=== PATIENT | female | born 1985 | race African-American/Black ===

== ENCOUNTER 2016-07-04 22:22 | Emergency (ER) | payer MEDICAID ==
[~2016-07-04 22:22] MED LIST: SERO200T PO
--- NOTE | 2016-07-04 23:04 | PD ---
HPI Chief Complaint contractions Date Seen: Jul 04, 2016 Time Seen: 23:00 (Manny Flores MD) Travel History International Travel<30 Days: No Contact w/Intl Traveler<30Days: No (Manny Flores MD) History of Present Illness HPI 31 year old at 35/3 weeks presents with report of contractions. They started one week ago. They have been very irregular. They are associated with low back pain. She also reports some slow leaking of clear fluid for the past week. She is presenting to be sure there she is not in labor. No headache, blurry vision, chest pain, shortness of breath, calf tenderness. No nausea or vomiting. She is otherwise doing well, with no vaginal bleeding and positive movements. She is up to date on care per her report. No complications reported for this . (Manny Flores MD) History Past Medical History Narrative Medical Bipolar disorder (Manny Flores MD) Obstetric History Obstetric History with 2 miscarriages 1.) miscarriage early 2.) term , vaginal 3.) miscarriage, early 4.) 37 weeks vaginal 5.) 37 weeks vaginal Current , no complications (Manny Flores MD) Past Surgical History Narrative Surgical None (Manny Flores MD) Family History Narrative Family History None (Manny Flores MD) Social History Alcohol Use: No Tobacco Use: No Substance Abuse: No (Manny Flores MD) Allergies-Medications (Allergen,Severity, Reaction): Coded Allergies: No Known Allergies (Unverified , 04/21/16) Home Meds Reported Medications Quetiapine (Seroquel)200 Mg [id number] Mg PO DAILY #30 TAB Ref 0 04/21/16 Review of Systems General / Constitutional: Weight Gain, No: Fever, Weight Loss Eyes: No: Diploplia, Blurred Vision, Visual changes HENT: No: Headaches, Vertigo, Lightheadedness Cardiovascular: No: Irregular Rhythm, Chest Pain or Discomfort, Palpitations, Tachycardia, Syncope Respiratory: No: Cough, Short of Breath, Wheezing Gastrointestinal: No: Nausea, Vomiting, Diarrhea, Abdominal Pain Genitourinary: No: Urgency, Frequency, Dysuria Musculoskeletal: Cramping, No: Weakness, Edema Skin: No Rash, No Itching, No Dryness Neurologic: No: Weakness, Dizziness, Focal Abnormalities, Coordination Problem , Slurred Speech, Seizures Psychiatric: No: Anxiety, Depression, Disorder of Thought, Mood Disorder, Substance Abuse (Manny Flores MD R2) Physical Exam Narrative GENERAL: Well-nourished, well-developed patient. SKIN: Warm and dry. HEAD: Normocephalic and atraumatic. EYES: No scleral icterus. No injection or drainage. ENT: No nasal drainage noted. Mucous membranes pink. Airway patent. NECK: Supple, trachea midline. No JVD. CARDIOVASCULAR: Regular rate and rhythm without murmurs, gallops, or rubs. RESPIRATORY: Breath sounds equal bilaterally. No accessory muscle use. ABDOMEN/GI: Abdomen soft, non-tender, bowel sounds present, no rebound, no guarding Gravid to 35 weeks size GENITOURINARY: External Genitalia: intact and normal in appearance Dilatation: 0 Effacement: 0 Station: Presentation: [-] Membranes: [intact or ruptured] Uterine Contractions: none FHT's: Category: 1 Baseline: 150's Reactive: yes Variability: moderate Decels: none EXTREMITIES: No cyanosis or edema. BACK: Nontender without obvious deformity. No CVA tenderness. NEUROLOGICAL: Awake and alert. Motor and sensory grossly within normal limits. Five out of 5 muscle strength in all muscle groups. Normal speech. (Manny Flores MD R2) Data Data Vital Signs Reviewed: Yes (Manny Flores MD R2) [facility] Medical Record Reviewed: Yes Interpretation(s) 31 year old at 35/3 weeks gestation presents with report of contractions. - Labor check - monitoring, monitor for contractions - Hydration - Urinalysis - Amnisure for vaginal leaking Narrative Course / MDM 31 year old at 35/3 weeks gestation presents with report of contractions. Likely cramping versus [place]-Zimmerman. - Category one tracing - No contractions on monitor - Cervix closed - Urinalysis: negative for infection - Amnisure negative (Manny Flores MD R2) Attending Attestation Patient seen and evaluated with resident under direct supervision, agree with assessment and plan. (Zak Bolanos MD) Diagnosis Diagnosis: Primary Impression: Uterine cramping Disposition: 01 DISCHARGE HOME Condition: Good Manny Flores MD R2 Jul 04, 2016 23:04 Zak Bolanos MD Jul 05, 2016 09:01
[2016-07-04 23:27] LABS: BLOOD, URINE NEG (NEG); COMMENT (UR) CULT NOT INDICATED; CULTURE IF INDICATED CULT NOT INDICATED; GLUCOSE,URINE NEG (NEG); KETONE, URINE NEG (NEG); NITRITE,URINE NEG (NEG); PH, URINE 6.5 (5.0-8.5); SQUAMOUS EPITHELIAL CELL URINE 1 /hpf (0-5); URINE COLOR YELLOW (YELLW/STRAW)
== END 2016-07-04 23:30 | disposition home or self-care (01) ==
LOC: HOBED 22:22
DX: O47.03 False labor before 37 completed weeks of gestation, third trimester (principal); Z3A.35 35 weeks gestation of pregnancy
CPT/HCPCS: 59025; 81001; 84112

== ENCOUNTER 2016-08-12 07:45 | Emergency (ER) | payer MEDICAID ==
[~2016-08-12] VITALS: Ht 165.1 cm; Wt 130.0 kg
[2016-08-12 07:47] VITALS: BP 134/96; PULSE 114; RESP 18; TEMP 98.7; O2SAT 98
[2016-08-12 08:17] VITALS: BP 127/80; PULSE 111; RESP 20; O2SAT 99
[2016-08-12] MEDS ORDERED: IBUPROFEN 600 MG TAB PO ONE (09:00)
--- NOTE | 2016-08-12 09:18 | PD ---
HPI Chief Complaint: Wound/Suture/Staple Re-Check Time Seen by Provider: 08:36 Travel History International Travel<30 days: No Contact w/Intl Traveler<30days: No Traveled to known affect area: No History of Present Illness HPI 31 y/o female presents with intermittently leaking blood and intermittent cramping near her site. She states she had surgery and land on the 16. She states she lives here and was out there visiting someone when she went into labor and had to have surgery unexpectedly. She states that she's also been having burning when she urinates and general ill feeling but denies other concurrent complaints. She states this is her first time she's had to have a as with her other kids it was a natural delivery. She states that she is not breast-feeding or pumping. PFSH Past Medical History Arthritis: No Autoimmune Disease: No Blood Disorders: No Bipolar Disorder: Yes Anxiety: Yes Depression: Yes Cancer: No Cardiovascular Problems: No Diabetes: No Diminished Hearing: No Endocrine: No Gastrointestinal Disorders: No Genitourinary: No Immune Disorder: No Implanted Vascular Access Dvce: No Musculoskeletal: No Neurologic: No Psychiatric: Yes (DX. BIPOLAR D/O) Reproductive: No Respiratory: No Immunizations Current: Yes Tetanus Vaccination: < 5 Years Influenza Vaccination: Yes ?: Not : 6 Para: 4 Miscarriage: 2 Dilation and Curettage (D&C): Yes Past Surgical History Surgical History: No Previous Surgery Section: Yes Gynecologic Surgery: Yes (D&C) Other Surgery: Yes Social History Alcohol Use: No Tobacco Use: No Substance Use: No Allergies-Medications (Allergen,Severity, Reaction): Coded Allergies: No Known Allergies (Unverified , 04/21/16) Reported Meds & Prescriptions Reported Meds & Active Scripts Active Macrobid (Nitrofurantoin Monoh/Nitrofur Macro) 100 Mg Cap 100 Mg PO BID 7 Days Reported Seroquel (Quetiapine Fumarate) 200 Mg Tab 200 Mg PO DAILY Review of Systems Except as stated in HPI: all other systems reviewed are Neg Physical Exam Narrative GENERAL: Well-nourished, well-developed patient. SKIN: To lateral edge of the incision there is small area where I can see deep suture but there is no active bleeding or drainage from this area. No underlying induration or crepitus, no surrounding erythema or warmth HEAD: Normocephalic and atraumatic. EYES: No injection or drainage. ENT: No nasal drainage noted. NECK: Supple, trachea midline. CARDIOVASCULAR: Regular rate and rhythm RESPIRATORY: no increased effort. No accessory muscle use. GASTROINTESTINAL: Abdomen soft, mild tenderness to suprapubic area, nondistended. BACK: Nontender without obvious deformity. NEUROLOGICAL: Awake and alert. Motor and sensory grossly within normal limits. Normal speech. Data Data Last Documented VS Vital Signs Date Time Temp Pulse Resp B/P Pulse Ox O2 Delivery O2 Flow Rate FiO2 08/12/16 10:03 105 20 125/75 99 Room Air 08/12/16 07:47 98.7 Orders Urinalysis - C+S If Indicated (08/12/16 08:29) Ibuprofen (Motrin) (08/12/16 09:00) Urine Culture (08/12/16 08:15) Labs Laboratory Tests Test 08/12/16 08:15 Urine Color YELLOW Urine Turbidity HAZY Urine pH 6.5 Urine Specific [place] 1.009 Urine Protein NEG mg/dL Urine Glucose (UA) NEG mg/dL Urine Ketones NEG mg/dL Urine Occult Blood MOD Urine Nitrite NEG Urine Bilirubin NEG Urine Urobilinogen LESS THAN 2.0 MG/DL Urine Leukocyte Esterase SMALL Urine RBC 1 /hpf Urine WBC 9 /hpf Urine Squamous Epithelial 10 /hpf Cells Urine Transitional Epithelial <1 /hpf Cells Urine Bacteria RARE /hpf Microscopic Urinalysis Comment CULTURE INDICATED MDM Medical Decision Making Medical Screen Exam Complete: Yes Emergency Medical Condition: Yes Medical Record Reviewed: Yes (past history confirmed) Interpretation(s) ua with uti Differential Diagnosis UTI, postop pain, surgical infection Narrative Course Will check urinalysis and dose with Motrin and reevaluate Patient denies any new complaints and states that they are feeling better. Patient happy with care, all questions answered. Patient knows that follow up is incumbent on them and to return to the emergency room immediately if new or worsening symptoms develop. Patient given strict return precautions, vitals reviewed and are normal, agrees to further workup as an outpatient. Physician Communication Physician Communication dr candelario who is the covering OB hospitalist states to place dressing and she should follow with her surgeon. If gets worse she should return ideally where her surgeon is located Diagnosis Primary Impression: Visit for wound check Additional Impression: UTI (urinary tract infection) Qualified Code: N39.0 - Urinary tract infection without hematuria, site unspecified Patient Instructions: General Instructions Additional Instructions: follow with your surgeon tommorrow, return as needed, alternate motrin with your pain medication at home Med/Other Pt SpecificInfo: Prescription(s) given Scripts Nitrofurantoin Monohydrate Macrocrystals (Macrobid)100 Mg [id number] Mg PO BID 7 Days Prov:Xena Parish MD 08/12/16 Disposition: 01 DISCHARGE HOME Condition: Stable Xena Parish MD Aug 12, 2016 09:18 Xena Parish MD Aug 12, 2016 09:18
[2016-08-12 09:37] LABS: BACTERIA, URINE RARE /hpf; BLOOD, URINE MOD (NEG); GLUCOSE,URINE NEG (NEG); KETONE, URINE NEG (NEG); NITRITE,URINE NEG (NEG); PH, URINE 6.5 (5.0-8.5); SQUAMOUS EPITHELIAL CELL URINE 10 /hpf (0-5); TRANSITIONAL EPI CELLS, URINE <1 /hpf; URINE COLOR YELLOW (YELLW/STRAW)
[2016-08-12 09:46] LABS: COMMENT (UR) CULTURE INDICATED; CULTURE IF INDICATED CULTURE INDICATED
[2016-08-12] MEDS ORDERED: MACR100C2 PO (09:58)
[2016-08-12 10:03] VITALS: BP 125/75; PULSE 105; RESP 20; O2SAT 99
== END 2016-08-12 10:42 | disposition home or self-care (01) ==
LOC: NEPC 07:45
DX: O90.0 Disruption of cesarean delivery wound (principal); N39.0 Urinary tract infection, site not specified
CPT/HCPCS: 81001; 87086; 99283

== ENCOUNTER 2016-09-09 15:36 | Emergency (ER) | payer MEDICAID ==
[~2016-09-09] VITALS: Ht 165.1 cm; Wt 131.5 kg
[~2016-09-09 15:36] MED LIST changes: +MACR100C2 PO
[2016-09-09 15:37] VITALS: BP 144/91; PULSE 102; RESP 20; TEMP 98.5; O2SAT 100
[2016-09-09 16:30] VITALS: BP 137/82; PULSE 91; RESP 16; O2SAT 96
--- NOTE | 2016-09-09 18:54 | PD ---
HPI Chief Complaint: Wound/Suture/Staple Re-Check Time Seen by Provider: 18:50 Travel History International Travel<30 days: No Contact w/Intl Traveler<30days: No Traveled to known affect area: No History of Present Illness HPI 31-year-old female presents to the emergency department for evaluation of possible infection to her . Patient states she has on August 06, 2016. She followed up with her surgeon 1 week after, but states she does not have the time to drive to [place] and see him for further follow- up. Patient states that she is noticing a foul odor and drainage from the C- section wound with increasing pain. She denies any fevers or chills. She is not currently breast-feeding. This was her fourth , but the other 3 pregnancies were delivered vaginally. Patient denies any medical problems or taking prescribed medications. PFSH Past Medical History Arthritis: No Autoimmune Disease: No Blood Disorders: No Bipolar Disorder: Yes Anxiety: Yes Depression: Yes Cancer: No Cardiovascular Problems: No Diabetes: No Diminished Hearing: No Endocrine: No Gastrointestinal Disorders: No Genitourinary: No Immune Disorder: No Implanted Vascular Access Dvce: No Musculoskeletal: No Neurologic: No Psychiatric: Yes (DX. BIPOLAR D/O) Reproductive: No Respiratory: No Immunizations Current: Yes ?: Not : 6 Para: 4 Miscarriage: 2 Dilation and Curettage (D&C): Yes Past Surgical History Section: Yes Gynecologic Surgery: Yes (D&C) Other Surgery: Yes Social History Alcohol Use: No Tobacco Use: No Substance Use: No Allergies-Medications (Allergen,Severity, Reaction): Coded Allergies: No Known Allergies (Unverified , 04/21/16) Reported Meds & Prescriptions Reported Meds & Active Scripts Active Bactroban Topical (Mupirocin) 2% Oint 1 Appl TOPICAL BID 10 Days Bactrim DS (Sulfamethoxazole-Trimethoprim) 800-160 Mg Tab 1 Tab PO BID 10 Days Reported Seroquel (Quetiapine Fumarate) 25 Mg Tab 25 Mg PO DAILY Seroquel (Quetiapine Fumarate) 50 Mg Tab 50 Mg PO HS Review of Systems Except as stated in HPI: all other systems reviewed are Neg Physical Exam Narrative GENERAL: Well-developed well-nourished female patient, ambulatory. Afebrile. SKIN: Warm and dry. Patient has a small area of dehiscence to the right side of the scar with purulent drainage noted. There is some mild induration to this area as well. She has tenderness to palpation. Follow odor noted. HEAD: Normocephalic. Atraumatic. EYES: No scleral icterus. No injection or drainage. NECK: Supple, trachea midline. No JVD or lymphadenopathy. CARDIOVASCULAR: Regular rate and rhythm without murmurs, gallops, or rubs. RESPIRATORY: Breath sounds equal bilaterally. No accessory muscle use. Lungs sounds are clear to auscultation. GASTROINTESTINAL: Abdomen soft, non-tender, nondistended. MUSCULOSKELETAL: No cyanosis, or edema. BACK: Nontender without obvious deformity. No CVA tenderness. Data Data Last Documented VS Vital Signs Date Time Temp Pulse Resp B/P Pulse Ox O2 Delivery O2 Flow Rate FiO2 09/09/16 21:00 95 18 128/66 99 Room Air 09/09/16 15:37 98.5 Orders Complete Blood Count With Diff (09/09/16 18:48) Comprehensive Metabolic Panel (09/09/16 18:48) Wound Culture And Gram Stain (09/09/16 18:48) Sulfamet-Trimeth Ds 800-160 Mg (Bactrim (09/09/16 21:30) Labs Laboratory Tests Test 09/09/16 19:00 White Blood Count 10.0 TH/MM3 Red Blood Count 4.10 MIL/MM3 Hemoglobin 11.4 GM/DL Hematocrit 34.1 % Mean Corpuscular Volume 83.1 FL Mean Corpuscular Hemoglobin 27.7 PG Mean Corpuscular Hemoglobin 33.3 % Concent Red Cell Distribution Width 15.5 % Platelet Count 274 TH/MM3 Mean Platelet Volume 7.6 FL Neutrophils (%) (Auto) 55.8 % Lymphocytes (%) (Auto) 31.1 % Monocytes (%) (Auto) 8.0 % Eosinophils (%) (Auto) 4.2 % Basophils (%) (Auto) 0.9 % Neutrophils # (Auto) 5.6 TH/MM3 Lymphocytes # (Auto) 3.1 TH/MM3 Monocytes # (Auto) 0.8 TH/MM3 Eosinophils # (Auto) 0.4 TH/MM3 Basophils # (Auto) 0.1 TH/MM3 CBC Comment AUTO DIFF Differential Comment AUTO DIFF CONFIRMED Platelet Estimate NORMAL Platelet Morphology Comment NORMAL Sodium Level 140 MEQ/L Potassium Level 3.6 MEQ/L Chloride Level 106 MEQ/L Carbon Dioxide Level 27.7 MEQ/L Anion Gap 6 MEQ/L Blood Urea Nitrogen 6 MG/DL Creatinine 0.87 MG/DL Estimat Glomerular Filtration 93 ML/MIN Rate Random Glucose 84 MG/DL Calcium Level 8.9 MG/DL Total Bilirubin 0.4 MG/DL Aspartate Amino Transf 17 U/L (AST/SGOT) Alanine Aminotransferase 16 U/L (ALT/SGPT) Alkaline Phosphatase 120 U/L Total Protein 7.6 GM/DL Albumin 3.6 GM/DL MDM Medical Decision Making Medical Screen Exam Complete: Yes Emergency Medical Condition: Yes Medical Record Reviewed: Yes Differential Diagnosis Cellulitis versus abscess versus surgical complication Narrative Course 31-year-old female presents to the emergency department for odor and drainage from her that was performed on August 06, 2016. CBC, CMP are ordered and pending. Wound culture is taken. Workup is initiated in triage. Once a medical bed becomes available, patient will be transferred and care assumed by that provider. Scripts Mupirocin Topical (Bactroban Topical)2% Oint1 Appl TOPICAL BID 10 Days Prov:Mariah Segura MD 09/09/16 Sulfamethoxazole-Trimethoprim (Bactrim DS)800-160 Mg Tab1 Tab PO BID 10 Days Prov:Mariah Segura MD 09/09/16 Beryl Obando Sep 09, 2016 18:54
[2016-09-09 19:25] LABS: AUTOMATED NEUTROPHIL # 5.6 TH/MM3 (1.8-7.7); BASOPHIL # 0.1 TH/MM3 (0-0.2); BASOPHIL % 0.9 % (0.0-2.0); EOSINOPHIL # 0.4 TH/MM3 (0-0.4); EOSINOPHIL % 4.2 % (0.0-4.0); HEMATOCRIT 34.1 % (35.0-46.0); LYMPH % 31.1 % (9.0-44.0); LYMPHOCYTE # 3.1 TH/MM3 (1.0-4.8); MEAN CELL VOLUME 83.1 FL (80.0-100.0); MEAN CORPUSCULAR HEMOGLOBIN 27.7 PG (27.0-34.0); MEAN CORPUSCULAR HGB CONC 33.3 % (32.0-36.0); NEUT % 55.8 % (16.0-70.0); PLATELET COUNT 274 TH/MM3 (150-450); RED CELL DISTRIBUTION WIDTH 15.5 % (11.6-17.2)
[2016-09-09 19:28] LABS: HEMO FLAGS AUTO DIFF
[2016-09-09 19:37] LABS: ALT (GPT) 16 U/L (10-53); ANION GAP 6 MEQ/L (5-15); AST (GOT) 17 U/L (15-37); BICARBONATE 27.7 MEQ/L (21.0-32.0); BLOOD UREA NITROGEN 6 MG/DL (7-18); CHLORIDE 106 MEQ/L (98-107); GLOMERULAR FILTRATION RATE 93 ML/MIN (>89); POTASSIUM 3.6 MEQ/L (3.5-5.1); SODIUM (NA) 140 MEQ/L (136-145)
[2016-09-09 19:40] LABS: ALKALINE PHOSPHATASE 120 U/L (45-117); TOTAL BILIRUBIN ADULT 0.4 MG/DL (0.2-1.0)
[2016-09-09 21:00] VITALS: BP 128/66; PULSE 95; RESP 18; O2SAT 99
[2016-09-09 21:00] LABS: PLATELET ESTIMATE SMEAR NORMAL (NORMAL); PLATELET MORPHOLOGY NORMAL (NORMAL); SCAN/DIFF AUTO DIFF CONFIRMED
[2016-09-09] MEDS ORDERED: SERO25TA PO (21:03)
[2016-09-09] MEDS ORDERED: SERO50TA PO (21:03)
[2016-09-09] MEDS ORDERED: BACT800T5 PO (21:17)
[2016-09-09] MEDS ORDERED: BACT2OIN TOPICAL (21:17)
--- NOTE | 2016-09-09 21:23 | PD ---
Physical Exam Date Seen by Provider: Sep 09, 2016 Time Seen by Provider: 21:17 Narrative 31-year-old female that presents to the ED for evaluation of possible wound infection. Please refer to Beryl FONSECA's note. Patient was initially seen by her and she was signed out to me pending labs and disposition. On my Physical examination patient has a very superficial well-healing surgical site with some mild erythema on the borders and some greenish discharge from an opening that appears to be healing. I do not feel any palpable mass. Patient has no lymphadenopathy. No other symptoms or deformities noted. Data Data Last Documented VS Vital Signs Date Time Temp Pulse Resp B/P Pulse Ox O2 Delivery O2 Flow Rate FiO2 09/09/16 21:00 95 18 128/66 99 Room Air 09/09/16 15:37 98.5 Orders Complete Blood Count With Diff (09/09/16 18:48) Comprehensive Metabolic Panel (09/09/16 18:48) Wound Culture And Gram Stain (09/09/16 18:48) Sulfamet-Trimeth Ds 800-160 Mg (Bactrim (09/09/16 21:30) Labs Laboratory Tests Test 09/09/16 19:00 White Blood Count 10.0 TH/MM3 Red Blood Count 4.10 MIL/MM3 Hemoglobin 11.4 GM/DL Hematocrit 34.1 % Mean Corpuscular Volume 83.1 FL Mean Corpuscular Hemoglobin 27.7 PG Mean Corpuscular Hemoglobin 33.3 % Concent Red Cell Distribution Width 15.5 % Platelet Count 274 TH/MM3 Mean Platelet Volume 7.6 FL Neutrophils (%) (Auto) 55.8 % Lymphocytes (%) (Auto) 31.1 % Monocytes (%) (Auto) 8.0 % Eosinophils (%) (Auto) 4.2 % Basophils (%) (Auto) 0.9 % Neutrophils # (Auto) 5.6 TH/MM3 Lymphocytes # (Auto) 3.1 TH/MM3 Monocytes # (Auto) 0.8 TH/MM3 Eosinophils # (Auto) 0.4 TH/MM3 Basophils # (Auto) 0.1 TH/MM3 CBC Comment AUTO DIFF Differential Comment AUTO DIFF CONFIRMED Platelet Estimate NORMAL Platelet Morphology Comment NORMAL Sodium Level 140 MEQ/L Potassium Level 3.6 MEQ/L Chloride Level 106 MEQ/L Carbon Dioxide Level 27.7 MEQ/L Anion Gap 6 MEQ/L Blood Urea Nitrogen 6 MG/DL Creatinine 0.87 MG/DL Estimat Glomerular Filtration 93 ML/MIN Rate Random Glucose 84 MG/DL Calcium Level 8.9 MG/DL Total Bilirubin 0.4 MG/DL Aspartate Amino Transf 17 U/L (AST/SGOT) Alanine Aminotransferase 16 U/L (ALT/SGPT) Alkaline Phosphatase 120 U/L Total Protein 7.6 GM/DL Albumin 3.6 GM/DL [facility] Medical Record Reviewed: Yes Supervised Visit with JEANNINE: No Interpretation(s) CBC & BMP Diagram 09/09/16 19:00 Differential Diagnosis wound infection versus surgical site infection versus cellulitis versus abscess Narrative Course 31-year-old female that presents to the ED for evaluation of possible wound infection. Patient was properly examined and was found to have signs and symptoms consistent with appears to be well infection. Patient was initially seen by Beryl FONSECA. Please refer to her note. I was asked to disposition the patient pending labs. Labs were essentially unremarkable. On my physical examination this appears to be a very superficial infection. I do not believe the patient has any deep infection at this time. Patient is walking and moving with no signs of acute disease. No sign of sepsis. Patient does inform me that she's been cleaning the wound with hydrogen peroxide. I believe that this is likely causing some of the symptoms. I recommend that she stop doing this. At this time I will give patient a prescription for Bactrim and bacitracin. Patient had wound changes done here. Patient was told the wound culture should come back in the next 2 days and will be able to figure out what bacteria is growing in it if any. I did strongly encourage the patient that she needs to follow up with whoever did the surgery that she needs to be aware that she has this infection. She agrees and understands. She was also made aware that if anything worsens including having fever, worsening discharge, worsening erythema or symptoms she needs to come back. She agrees and understands. Follow with PCP. See ED worsening symptoms. This was discussed with the patient who agrees with plan. Diagnosis Primary Impression: Wound infection Patient Instructions: General Instructions Additional Instruction: Take medication as prescribed. She has dressings daily. Follow-up with your [employer] ACC[employer] MANAGER who performed the surgery as he needs to be aware of that you have a small infection in this area. See ED if any signs of fever, chills, worsening infection on the area with worsening drainage or worsening pain. Med/Other Pt SpecificInfo: Prescription(s) given Scripts Mupirocin Topical (Bactroban Topical)2% Oint1 Appl TOPICAL BID 10 Days Prov:Mariah Segura MD 09/09/16 Sulfamethoxazole-Trimethoprim (Bactrim DS)800-160 Mg Tab1 Tab PO BID 10 Days Prov:Mariah Segura MD 09/09/16 Disposition: 01 DISCHARGE HOME Condition: Stable Mauricio Montalvo Sep 09, 2016 21:23
[2016-09-09] MEDS ORDERED: SULFAMETHOXAZOLE-TRIMETHOPRIM DS 800-160 MG TAB PO ONE (21:30)
== END 2016-09-09 21:53 | disposition home or self-care (01) ==
LOC: NEPE 15:36
DX: T81.4XXA Infection following a procedure, initial encounter (principal)
CPT/HCPCS: 80053; 85025; 86403; 87070; 87205; 99283

== ENCOUNTER 2017-09-17 11:26 | Emergency (ER) | payer MEDICAID, OTHER ==
[~2017-09-17] VITALS: Ht 165.1 cm; Wt 115.0 kg
[~2017-09-17 11:26] MED LIST changes: +BACT2OIN TOPICAL; +BACT800T5 PO; -MACR100C2 PO; -SERO200T PO; +SERO25TA PO; +SERO50TA PO
[2017-09-17 11:28] VITALS: BP 128/84; PULSE 79; RESP 15; TEMP 97.4; O2SAT 100
--- NOTE | 2017-09-17 14:14 | PD ---
HPI . 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 She is also complaining with amenorrhea. Last menstrual period was in June but was abnormal in that she only bled lightly and for a couple of days. Her last normal menstrual period was in May. She is also complaining with some pelvic discomfort. No modifying factors. Symptoms are mild. PFSH Past Medical History Arthritis: No Autoimmune Disease: No Blood Disorders: No Bipolar Disorder: Yes Anxiety: Yes Depression: Yes Cancer: No Cardiovascular Problems: No Diabetes: No Diminished Hearing: No Endocrine: No Gastrointestinal Disorders: No Genitourinary: No Immune Disorder: No Implanted Vascular Access Dvce: No Musculoskeletal: No Neurologic: No Psychiatric: Yes (DX. BIPOLAR D/O) Reproductive: No Respiratory: No Immunizations Current: Yes ?: Unknown LMP: 06/2017 : 6 Para: 4 Miscarriage: 2 Dilation and Curettage (D&C): Yes Past Surgical History Section: Yes Gynecologic Surgery: Yes (D&C) Other Surgery: Yes Social History Alcohol Use: No Tobacco Use: No Substance Use: No Allergies-Medications (Allergen,Severity, Reaction): Coded Allergies: No Known Allergies (Unverified Adverse Reaction, Unknown, 09/17/17) Reported Meds & Prescriptions Reported Meds & Active Scripts Active Bactroban Topical (Mupirocin) 2% Oint 1 Appl TOPICAL BID 10 Days Bactrim DS (Sulfamethoxazole-Trimethoprim) 800-160 Mg Tab 1 Tab PO BID 10 Days Reported Seroquel (Quetiapine Fumarate) 25 Mg Tab 25 Mg PO DAILY Seroquel (Quetiapine Fumarate) 50 Mg Tab 50 Mg PO HS Review of Systems Except as stated in HPI: all other systems reviewed are Neg Physical Exam Narrative GENERAL: Awake and alert and in no acute distress. SKIN: Warm and dry. HEAD: Normocephalic/atraumatic. EYES: Pupils are equal. Extraocular movements are intact. NECK: Normal range of motion. CARDIOVASCULAR: Regular rate and rhythm. RESPIRATORY: Nonlabored respirations. ABDOMEN: Soft and nontender. : Normal female. Physiologic appearing discharge in the vaginal vault. No cervical motion tenderness. She does complain with adnexal tenderness on bimanual exam. MUSCULOSKELETAL: Atraumatic. NEUROLOGICAL: Nonfocal. PSYCHIATRIC: Appropriate mood and affect. Data Data Last Documented VS Vital Signs Date Time Temp Pulse Resp B/P (MAP) Pulse Ox O2 Delivery O2 Flow Rate FiO2 09/17/17 11:28 97.4 79 15 128/84 (99) 100 Orders Orders Gc And Chlamydia Pcr (09/17/17 12:10) Wet Prep Profile (09/17/17 12:10) Ed Urine Pregnancytest Poc (09/17/17 12:10) Beta Hcg (Quant/Titer) (09/17/17 12:26) Us Pelvis (Ques Preg/Ectopic) (09/17/17 12:26) Labs Laboratory Tests Test 09/17/17 12:25 Clue Cells (Wet Prep) NONE SEEN Vaginal Trichomonas (Wet Prep) NONE SEEN Vaginal Yeast (Wet Prep) PRESENT MDM Medical Decision Making Medical Screen Exam Complete: Yes Emergency Medical Condition: Yes Differential Diagnosis Differential diagnosis of pelvic pain includes but is not limited to UTI, PID, ectopic , spontaneous AB, constipation, viral illness Narrative Course This patient presents complaining of pelvic pain and vaginal discharge. She has missed a few periods. Urine test is positive. I ordered a quantitative hCG and pelvic ultrasound. However, the patient has left prior to the completion of her workup. Diagnosis Primary Impression: Pelvic pain affecting Qualified Codes: O26.891 - Other specified related conditions, first trimester; R10.2 - Pelvic and perineal pain Disposition: 07 AGAINST MEDICAL ADVICE Condition: Stable Megha Omalley MD Sep 17, 2017 14:14
--- NOTE | 2017-09-17 15:52 | RADRPT ---
EXAM DATE/TIME: 09/17/2017 14:44 [place] COMPARISON: No previous studies available for comparison. INDICATIONS : Pelvic pain. LAB(S): [facility] MEDICAL HISTORY : Depression. Bipolar disorder. Anxiety. SURGICAL HISTORY : section. Dilation and currettage. ENCOUNTER: Subsequent ACUITY: 1 week PAIN SCORE: 4/10 LOCATION: Bilateral pelvis MEASUREMENTS: UTERUS: 14.9 x 8.6 x 9.2 cm ENDOMETRIAL STRIPE: >20 mm RIGHT OVARY: Non visualized LEFT OVARY: 5.1 x 3.8 x 3.9 cm FREE FLUID: No CROWN RUMP LENGTH: 5.9 = 12 WKS 4 DAYS FHR: 142 BPM FINDINGS: UTERUS: There is a gestational sac within the endometrial cavity. There is a pole that measures 12 week s and 4 days of gestational age. There is a heartbeat measured at 142 beats per minute. RIGHT OVARY: Not visualized LEFT OVARY: There is a left ovarian cyst measuring 3.9 x 4.0 cm. MISCELLANEOUS: No free fluid. CONCLUSION: 1. Viable IUP of approximately 12 weeks and 4 days of age. 2. Left ovarian cyst measuring 4 cm. Francesco Yun MD on September 17, 2017 at 15:48 Board Certified Radiologist. This report was verified electronically.
[2017-09-17] MEDS ORDERED: FLUCONAZOLE 100 MG TAB PO ONE (16:00)
== END 2017-09-17 16:27 | disposition home or self-care (01) ==
LOC: NEPD 11:26
DX: O26.891 Other specified pregnancy related conditions, first trimester (principal); R10.2 Pelvic and perineal pain; N89.8 Other specified noninflammatory disorders of vagina; O34.81 Maternal care for other abnormalities of pelvic organs, first trimester; N83.202 Unspecified ovarian cyst, left side; O99.341 Other mental disorders complicating pregnancy, first trimester; F31.9 Bipolar disorder, unspecified; F41.9 Anxiety disorder, unspecified; Z3A.12 12 weeks gestation of pregnancy
CPT/HCPCS: 76700; 84702; 84703; 87210; 87491; 87591

== ENCOUNTER 2017-10-24 15:41 | Emergency (ER) | payer OTHER ==
[~2017-10-24] VITALS: Ht 177.8 cm; Wt 118.0 kg
[2017-10-24 15:58] VITALS: BP 151/80; PULSE 88; RESP 18; TEMP 98; O2SAT 98
[2017-10-24] MEDS ORDERED: TETANUS/DIPHTHERIA TOXOID ADULT 0.5 ML VIAL IM ONE (16:15)
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
== END 2017-10-24 16:45 | disposition home or self-care (01) ==
LOC: NEPD 15:41
DX: O9A.212 Injury, poisoning and certain other consequences of external causes complicating pregnancy, second trimester (principal); S41.111A Laceration without foreign body of right upper arm, initial encounter; S20.229A Contusion of unspecified back wall of thorax, initial encounter; Y08.89XA Assault by other specified means, initial encounter; O99.342 Other mental disorders complicating pregnancy, second trimester; F31.9 Bipolar disorder, unspecified; F41.9 Anxiety disorder, unspecified; Z3A.16 16 weeks gestation of pregnancy; Z23 Encounter for immunization
CPT/HCPCS: 12001; 90471; 90714

== ENCOUNTER 2018-03-15 10:45 | Inpatient (IN) ==
--- NOTE | 2018-03-15 11:48 | ED ---
History of Present Illness Primary Care Physician: No Primary Care Physician Chief Complaint: contractions History of Present Illness: 33 yo at 37 weeks and 5 days who presents to triage due to irregular contractions that started today. She is a patient of Heidi Sarmiento. Patient is scheduled for a c/s on March 24 at [place]. She is working with an adoptive family who suggested that she come to the ED. Patient denies leakage of fluid or vaginal bleeding. She reports that she has not felt baby move as often for the past 2 days. Weeks Gestation:: 37 Para: 4 : 7 Review of Systems All other systems reviewed negative except as stated in HPI PMFSH - History History Provided By: Patient - Medical / Surgical Hx Neg / Unobtainable Medical Problems Denied: Yes - Alcohol History How Often Do You Have a Drink Containing Alcohol: Never - Substance Use History Substance History: No History of Abuse - Travel History History of Recent Travel: No Recent Travel in the [facility] Within the Last 8 Weeks: No Recent Travel Out of the Country Within the Last 8 Weeks: No Medications and Allergies Allergies Allergy/AdvReac Type Severity Reaction Status Date / Time No Known Allergies Allergy Verified 03/15/18 11:20 Home Medications Medication Instructions Recorded Confirmed Type No Known Home Medications 03/15/18 03/15/18 History Exam Vital signs: Vital Signs 03/15/18 11:15 Temperature 98.1 F Pulse Rate 90 Respiratory Rate 18 Blood Pressure 143/75 H Intake & Output 03/14/18 03/15/18 03/15/18 18:59 06:59 18:59 Weight 118 kg Narrative: GENERAL: Well-nourished, well-developed patient. SKIN: Warm and dry. HEAD: Normocephalic and atraumatic. EYES: No scleral icterus. No injection or drainage. ENT: No nasal drainage noted. Mucous membranes pink. Airway patent. NECK: Supple, trachea midline. No JVD. CARDIOVASCULAR: Regular rate and rhythm without murmurs, gallops, or rubs. RESPIRATORY: Breath sounds equal bilaterally. No accessory muscle use. ABDOMEN/GI: Abdomen soft, non-tender, bowel sounds present, no rebound, no guarding Gravid to 37 weeks size GENITOURINARY: External Genitalia: intact and normal in appearance Cervix: high, posterior Dilatation: 0 Effacement: 30 Station: -4 Membranes: intact Uterine Contractions: none FHT's: Category: I Baseline: 130 Reactive: no Variability: moderate Decels: none EXTREMITIES: No cyanosis or edema. BACK: Nontender without obvious deformity. No CVA tenderness. NEUROLOGICAL: Awake and alert. Motor and sensory grossly within normal limits. Five out of 5 muscle strength in all muscle groups. Normal speech. Assessment and Plan - Diagnosis (1) contractions Code(s): O47.9 - False labor, unspecified Status: Acute (2) 37 weeks gestation of Code(s): Z3A.37 - 37 weeks gestation of Status: Acute (3) Drug abuse during Code(s): O99.320 - Drug use complicating , unspecified trimester; F19.10 - Other psychoactive substance abuse, uncomplicated Status: Acute - Plan 33 yo at 37 weeks and 5 days who presents to triage due to irregular contractions. FHT 130s Cat 1 with minimal variability and nonreactive. Patient UDS is positive for cocaine. -IV hydration with LR 1000ml -BPP 8/8, however baby is measuring 5lbs 5oz -Monitor FHR -Category 2 tracing with minimal variability X 5 hours -Decision made to proceed to C section. Patient consented and aware. Discharge Plan - Physicians Team ED Provider: Mable Garsia Primary Care Provider: Primary Care Lety Long - Rxs /Orders / Referrals /Forms Prescriptions: No Action No Known Home Medications - Discharge Instructions Print Language: Greenlandic
[2018-03-15 12:31] LABS: Amphetamine Screen,Urine Neg (Neg); Barbiturate Screen,Urine Neg (Neg); Cannabinoid Screen,Urine Neg (Neg); Cocaine Screen,Urine Pos (Neg)
[2018-03-15 12:41] LABS: Opiate Screen,Urine Neg (Neg)
[2018-03-15 13:18] LABS: Bilirubin,Urine Negative (Negative); Clarity,Urine Clear (Clear); Color,Urine Yellow (Yellw/Straw); Glucose,Urine (UA) Negative (Negative); Leukocyte Esterase,Urine Negative (Negative); Mucus,Urine Few /lpf (Occasional); Nitrite,Urine Negative (Negative); Specific Gravity,Urine 1.009 (1.002-1.035); Squamous Epithelial Cell,Urine 2 /hpf (0-5); Urobilinogen,Urine 4 or Greater mg/dL (Less than 2)
--- NOTE | 2018-03-15 15:18 | P.OBGPN ---
33 yo at 37 weeks and 5 days who presents to triage due to irregular contractions that started today. She is a patient of Heidi Sarmiento. Patient is scheduled for a c/s on March 24 at [place]. She is working with an adoptive family who suggested that she come to the ED. Patient denies leakage of fluid or vaginal bleeding. She reports that she has not felt baby move as often for the past 2 days. Weeks Gestation:: 37 Para: 4 : 7 Review of Systems All other systems reviewed negative except as stated in HPI PMFSH - History History Provided By: Patient - Medical / Surgical Hx Neg / Unobtainable Medical Problems Denied: Yes - Alcohol History How Often Do You Have a Drink Containing Alcohol: Never - Substance Use History Substance History: No History of Abuse - Travel History History of Recent Travel: No Recent Travel in the [facility] Within the Last 8 Weeks: No Recent Travel Out of the Country Within the Last 8 Weeks: No Medications and Allergies Allergies Allergy/AdvReac Type Severity Reaction Status Date / Time No Known Allergies Allergy Verified 03/15/18 11:20 Home Medications Medication Instructions Recorded Confirmed Type No Known Home Medications 03/15/18 03/15/18 History Exam Vital signs: Vital Signs 03/15/18 11:15 Temperature 98.1 F Pulse Rate 90 Respiratory Rate 18 Blood Pressure 143/75 H Intake & Output 03/14/18 03/15/18 03/15/18 18:59 06:59 18:59 Weight 118 kg Narrative: GENERAL: Well-nourished, well-developed patient. SKIN: Warm and dry. HEAD: Normocephalic and atraumatic. EYES: No scleral icterus. No injection or drainage. ENT: No nasal drainage noted. Mucous membranes pink. Airway patent. NECK: Supple, trachea midline. No JVD. CARDIOVASCULAR: Regular rate and rhythm without murmurs, gallops, or rubs. RESPIRATORY: Breath sounds equal bilaterally. No accessory muscle use. ABDOMEN/GI: Abdomen soft, non-tender, bowel sounds present, no rebound, no guarding Gravid to 37 weeks size GENITOURINARY: External Genitalia: intact and normal in appearance Cervix: high, posterior Dilatation: 0 Effacement: 30 Station: -4 Membranes: intact Uterine Contractions: none FHT's: Category: I Baseline: 130 Reactive: no Variability: moderate Decels: none EXTREMITIES: No cyanosis or edema. BACK: Nontender without obvious deformity. No CVA tenderness. NEUROLOGICAL: Awake and alert. Motor and sensory grossly within normal limits. Five out of 5 muscle strength in all muscle groups. Normal speech. Assessment and Plan - Diagnosis (1) contractions Code(s): O47.9 - False labor, unspecified Status: Acute (2) 37 weeks gestation of Code(s): Z3A.37 - 37 weeks gestation of Status: Acute (3) Drug abuse during Code(s): O99.320 - Drug use complicating , unspecified trimester; F19.10 - Other psychoactive substance abuse, uncomplicated Status: Acute - Plan 33 yo at 37 weeks and 5 days who presents to triage due to irregular contractions. FHT 130s Cat 1 with minimal variability and nonreactive. Patient UDS is positive for cocaine. -IV hydration with LR 1000ml -BPP 8/8, however baby is measuring 5lbs 5oz -Monitor FHR -Category 2 tracing with minimal variability X 5 hours -Decision made to proceed to C section. Patient consented and aware.
[2018-03-15] MEDS ORDERED: ceFAZolin 2 GM Premix Inj 2 GM/50 ML PIGGYBACK IV.SIG PRN (15:27)
[2018-03-15] MEDS ORDERED: Citric Acid/Sodium Citrate Liq 30 ML UDC PO SCH (15:30)
[2018-03-15 15:54] LABS: Baso % (Auto) 0.5 % (0.0-2.0); Eos # (Auto) 0.2 th/mm3 (0.0-0.4); Eos % (Auto) 2.2 % (0.0-4.0); Hematocrit 32.1 % (35.0-46.0); Hemoglobin 10.5 gm/dL (11.6-15.3); Lymph # (Auto) 2.4 th/mm3 (1.0-4.8); Lymph % (Auto) 23.2 % (9.0-44.0); Mean Corpuscular HGB Conc 32.8 % (32.0-36.0); Mean Corpuscular Hemoglobin 27.9 pg (27.0-34.0); Mean Corpuscular Volume 85.2 fL (80.0-100.0); Mean Platelet Volume 7.7 fL (7.0-11.0); Mono % (Auto) 9.5 % (0.0-8.0); Neut # (Auto) 6.6 th/mm3 (1.8-7.7); Neut % (Auto) 64.6 % (16.0-70.0); Platelet Count 244 th/mm3 (150-450); Red Blood Count 3.76 mil/mm3 (4.00-5.30); Red Cell Distribution Width 14.6 % (11.6-17.2); White Blood Count 10.2 th/mm3 (4.0-11.0)
[2018-03-15] MEDS ORDERED: EPINEPHrine PF/SF Inj 1 MG/ML Ampul I-OCULAR ONE (16:46)
[2018-03-15] MEDS ORDERED: Succinylcholine Inj 100 MG/5 ML Syringe IV.PUSH ONE ×2 (17:00→17:01)
[2018-03-15] MEDS ORDERED: Lidocaine PF 1% Inj 5 ML Syringe OTHER ONE (17:00)
[2018-03-15] MEDS ORDERED: Lidocaine PF 1% Inj 5 ML Syringe INFILTRATN ONE (17:01)
[2018-03-15] MEDS ORDERED: fentaNYL Citrate Inj 250 MCG/5 ML Ampul ONE (17:37)
[2018-03-15] MEDS ORDERED: Naloxone Inj 0.4 MG/ML Vial IV.PUSH PRN (18:16)
[2018-03-15] MEDS ORDERED: Oxytocin 30 Units/500ml Premix 30 UNITS/500 ML BAG IV.SIG ONE (18:16)
[2018-03-15] MEDS ORDERED: Morphine Inj 4 MG/ML Vial IV.SIG ONE (18:16)
[2018-03-15] MEDS ORDERED: Morphine Inj 30 MG/30 ML PCA.VIAL PCA ONE (18:35)
[2018-03-15] MEDS: Morphine Inj 30 MG/30 ML PCA.VIAL PCA PRN (19:07)
[2018-03-15] MEDS ORDERED: Labetalol HCl Inj 100 MG/20 ML Vial ONE (20:28)
[2018-03-15] MEDS ORDERED: Oxytocin 30 Units/500ml Premix 30 UNITS/500 ML BAG ONE (20:31)
--- NOTE | 2018-03-15 22:48 | P.OP ---
- Preoperative Diagnosis (1) Non-reassuring heart rate or rhythm affecting management of mother (2) Previous section complicating (3) 37 weeks gestation of (4) Drug abuse during Date of procedure: 03/15/18 (Preoperative diagnosis nonreassuring heart rate) Procedure: Preoperative diagnosis 37 week 4 day intrauterine nonreassuring heart rate recent cocaine use Postoperative diagnosis same Operative procedure repeat low uterine segment transverse section Intraoperative findings viable male Apgars [address] Amrit Roth Home Theater Expert PGY 3 Steve TATE Patient presented to triage complaining of decreased movement times several days also admits to recent use of cocaine. Patient first reported that she was advised by the adoption agency to present to make sure the baby was okay and then admits to decreased movement. In triage monitoring times several hours no accelerations questionable decelerations BPP 8 out of 10 .-2 for nonreassuring heart rate consistent with a category 2 heart rate tracing At this time discussed with the patient the findings no benefit in prolonging the . Alternatives benefits complications including but not limited to risk of permanent injury to the bowel bladder nerve blood vessel ureters any structures in the abdomen or pelvis injury risk of . Patient expressed verbal understanding she denies desiring a tubal sterilization. She was subsequently taken to the OR patient had refused spinal analgesia proceeded to general endotracheal intubation without incident. A Pfannenstiel incision was made on the skin slightly superior to the previous incision. With a second scalpel a incision was made in the midline through the fascia extended laterally digitally. Subsequently the superior aspect of the fascia was grasped with [place] clamps 2 and dissected off from the underlying rectus muscle noted to be densely adhered . The inferior aspect of the fascia was grasped with [place] clamps 2 and subsequently dissected off from the underlying rectus muscle with curved [place]. Blunt entrance into the peritoneum with care to avoid the bladder. Bladder blade was subsequently introduced. Identification of the vesicouterine peritoneum which was incised in the midline and extended bladder flap was created transverse incision on the uterus extended laterally digitally. Attempt to deliver the vertex 2 noted to be unsuccessful subsequently extended the incision superiorly then subsequently able to deliver the vertex nares and mouth were bulb suctioned followed by delivery of the remainder of the body. A viable male Apgars 7 7 delivered without incident. team present at delivery. The uterus was exteriorized cleared of all clot and debris the uterine incision was subsequently closed with 1 chromic in a running locked fashion followed by second imbricating Lambert suture. A small hematoma was noted to the patient's right which was subsequently excised the bleeding vessel was identified and ligated 2 with 1 chromic [id number]. The patient's round ligament on the right was used to buttress the lower uterine segment. Interrupted chromic applied. To the incisional line this was in fact the third layer. Upon reinspection small oozing noted from the right the apex is noted to be closed and intact at this time placement of 3-0 chromic on an SH interrupted. Very scant bleeding still present to air on the side of caution [place] was subsequently placed with excellent hemostasis noted the repeat uterus was repositioned in the pelvic abdominal cavity the paracolic gutters were cleared of all clot and debris. No further oozing or bleeding noted. At this time decided to close the fascia was identified and closed with 1 PDS in a continuous fashion. Subcutaneous bleeding was noted which was controlled readily with Bovie pencil.. Closure of the skin in its entirety with Monocryl. Patient tolerated procedure well sponge lap needle counts correct 2 patient taken to recovery room stable condition . Placenta sent to pathology. Surgeon: Mable Garsia MD
[2018-03-15] MEDS ORDERED: Oxytocin 30 Units/500ml Premix 30 UNITS/500 ML BAG IV.SIG PRN (23:18)
[2018-03-16] MEDS: ceFAZolin Inj 2,000 MG in Sodium Chlor 0.9% Inj 80 ML IV.SIG SCH ×2 (02:36→11:05)
[2018-03-16 05:53] LABS: Baso % (Auto) 0.1 % (0.0-2.0); Hemoglobin 9.8 gm/dL (11.6-15.3); Lymph # (Auto) 1.6 th/mm3 (1.0-4.8); Lymph % (Auto) 9.7 % (9.0-44.0); Mean Corpuscular HGB Conc 32.7 % (32.0-36.0); Mean Corpuscular Hemoglobin 27.8 pg (27.0-34.0); Mean Corpuscular Volume 85.1 fL (80.0-100.0); Mean Platelet Volume 7.6 fL (7.0-11.0); Mono % (Auto) 5.7 % (0.0-8.0); Neut # (Auto) 14.1 th/mm3 (1.8-7.7); Neut % (Auto) 84.5 % (16.0-70.0); Platelet Count 235 th/mm3 (150-450); Red Blood Count 3.52 mil/mm3 (4.00-5.30); Red Cell Distribution Width 14.8 % (11.6-17.2); White Blood Count 16.7 th/mm3 (4.0-11.0)
[2018-03-16] MEDS: Morphine Inj 30 MG/30 ML PCA.VIAL PCA PRN (08:31)
--- NOTE | 2018-03-16 08:58 | P.PNOB ---
Subjective Post day: 1 Interval history: Patient is a 33-year-old delivered at 37 weeks and 4 days. Patient is day 1 after repeat C/S. Patient's pain is well-controlled. Patient reports eating and drinking without any nausea or vomiting. Patient is walking without lower extremity pain or shortness of breath. Adoptive parents in the room with patient and baby. Objective Vital Signs/I&O: Vital Signs 03/15/18 11:15 03/15/18 13:55 03/15/18 14:00 Temperature 98.1 F 98.2 F Pulse Rate 90 87 Respiratory Rate 18 18 Blood Pressure 143/75 H 139/83 03/15/18 16:45 03/15/18 18:45 03/15/18 19:00 Temperature 98.0 F 97.5 F L Pulse Rate 88 89 88 Respiratory Rate 18 18 18 Blood Pressure 140/72 148/91 H 154/98 H 03/15/18 19:15 03/15/18 19:30 03/15/18 19:45 Temperature Pulse Rate 79 79 89 Respiratory Rate 18 20 18 Blood Pressure 179/107 H 182/104 H 178/100 H 03/15/18 20:00 03/15/18 20:09 03/15/18 20:17 Temperature Pulse Rate 81 86 Respiratory Rate 18 Blood Pressure 175/108 H 162/93 H 165/101 H 03/15/18 20:32 03/15/18 20:46 03/15/18 21:01 Temperature Pulse Rate 73 70 Respiratory Rate 18 18 Blood Pressure 178/87 H 149/89 H 142/88 H 03/15/18 21:30 03/16/18 00:00 03/16/18 03:48 Temperature 97.9 F 98.2 F 97.9 F Pulse Rate 76 70 77 Respiratory Rate 17 18 17 Blood Pressure 122/87 143/91 H 144/93 H Intake & Output 03/15/18 03/16/18 03/16/18 18:59 06:59 18:59 Intake Total 1000 / 1000 Balance 1000 / 1000 Weight 118 kg Intake: IV 1000 / 1000 LR 1000 mL Inj 1,000 ML @ 150 1000 / 1000 mls/hr IV.CONT .Q6H40M [facility] Rx#: [id number] Other: Weight On Admission 118 kg Result Diagrams: 03/16/18 05:18 Other Results: GENERAL: Well-nourished, well-developed patient. No acute distress. SKIN: Warm and dry. No rash. EYES: No scleral icterus. No injection or drainage. PERRLA. EOMI. HENT: Normocephalic. Atraumatic. MMM. NECK: No visible JVD or lymphadenopathy. CARDIOVASCULAR: Warm and well perfused. RESPIRATORY: Normal respiratory effort. GASTROINTESTINAL: Abdomen nondistended. MUSCULOSKELETAL: Strength grossly WNL. BACK: Without obvious deformity. NEURO/PSYCH: Afocal. Awake, alert, and oriented x3. Objective Remarks: GENERAL: Well-nourished, well-developed patient. CARDIOVASCULAR: Regular rate and rhythm without murmurs, gallops, or rubs. RESPIRATORY: Breath sounds equal bilaterally. No accessory muscle use. ABDOMEN/GI: Abdomen soft, non-tender. Fundus: Firm, non-tender at umbilicus. GENITOURINARY: Light to moderate bleeding. EXTREMITIES: No cyanosis or edema, non-tender, without signs of DVT. Medications and IVs: Active Medications Citric Acid/Sodium Citrate (Sodium Citrate/Citric Acid Liq) 30 ml PO [employer] [facility] Stop: 03/19/18 15:29 Last Admin: 03/15/18 16:52 Dose: 30 ml Diphenhydramine HCl (Benadryl) 50 mg PO Q6H PRN PRN Reason: PAIN 1-10 AND/OR FEVER >101F Last Admin: 03/16/18 03:18 Dose: 50 mg Diphtheria/Pertussis/Tetanus Vacc (Boostrix Vaccine Inj) 0.5 ml IM .ONCE ONE Stop: 03/16/18 16:01 Lactated Ringer's (Lr 1000 Ml Inj) 1,000 mls @ 500 mls/hr IV.CONT .Q2H [facility] Last Admin: 03/16/18 06:06 Dose: Not Given Lactated Ringer's (Lr 1000 Ml Inj) 1,000 mls @ 150 mls/hr IV.CONT .Q6H40M [facility] Last Admin: 03/16/18 06:06 Dose: 150 mls/hr Lactated Ringer's (Lr 1000 Ml Inj) 1,000 mls @ 100 mls/hr IV.CONT .Q10H [facility] Stop: 03/16/18 19:17 Last Admin: 03/15/18 23:50 Dose: Not Given Morphine Sulfate (Morphine Inj) 30 mg in 30 mls @ 0 mls/hr FIELD COUNSEL UNSCH PRN PRN Reason: per FIELD COUNSEL parameters Last Admin: 03/16/18 08:31 Dose: 0 mls/hr Oxytocin (Pitocin 30 Units/Ns 500 Ml Premix) 30 units in 500 mls @ 100 mls/hr IV.SIG UNSCH PRN PRN Reason: Heavy bleeding Cefazolin Sodium 2,000 mg/ (Sodium Chloride) 100 mls @ 200 mls/hr IV.SIG Q8H JOHN Stop: 03/16/18 09:29 Last Admin: 03/16/18 02:36 Dose: 200 mls/hr Ibuprofen (Motrin) 800 mg PO Q8H PRN PRN Reason: cramping Ketorolac Tromethamine (Toradol Inj) 30 mg IM Q6H PRN PRN Reason: SEE LABEL COMMENTS Stop: 03/20/18 18:15 Measles/Mumps/Rubella Vaccine Live (M-M-R Ii Vaccine Inj) 0.5 ml SQ .ONCE ONE Stop: 03/16/18 16:01 Naloxone HCl (Narcan Inj) 0.4 mg IV.PUSH PRN PRN PRN Reason: Resp rate < 10 Oxycodone/Acetaminophen (Percocet 5/325 Mg) 1 tab PO Q4H PRN PRN Reason: PAIN SCALE 3 TO 5 Oxycodone/Acetaminophen (Percocet 5/325 Mg) 2 tab PO Q4H PRN PRN Reason: PAIN SCALE 6 TO 10 Sodium Chloride (Ns Flush) 2 ml IV.FLUSH BID [facility] Last Admin: 03/15/18 22:03 Dose: Not Given Sodium Chloride (Ns Flush) 2 ml IV.FLUSH PRN PRN PRN Reason: FLUSH AFTER USING IV ACCESS Assessment and Plan - Diagnosis (1) delivery delivered Code(s): O82 - Encounter for delivery without indication Status: Acute (2) Drug abuse during Code(s): O99.320 - Drug use complicating , unspecified trimester; F19.10 - Other psychoactive substance abuse, uncomplicated Status: Acute - Plan Patient is a 33-year-old delivered at 37 weeks and 4 days. Patient is day 1 after repeat C/S. Patient was counseled to do 6 weeks of pelvic rest. Patient was counseled to follow up in 6 weeks. --Monitor patient's blood pressure. If >160/105 will add PRN medications. --Regular diet --AF VSS --Continue routine care --Motrin and Percocet when necessary for pain --Encourage OOB --Pelvic rest for 6 weeks will need follow-up appointment at that time. --Anticipate discharge tomorrow
[2018-03-16] MEDS ORDERED: Diphtheria/Tetanus/Pertussis Vaccine Inj 0.5 ML Syringe IM ONE (16:00)
[2018-03-16] MEDS ORDERED: Measles/Mumps/Rubella Vaccine Inj 0.5 ML Vial SQ ONE (16:00)
[2018-03-16 20:37] VITALS: O2SAT 100
[2018-03-17 05:56] LABS: Baso % (Auto) 0.3 % (0.0-2.0); Eos # (Auto) 0.2 th/mm3 (0.0-0.4); Eos % (Auto) 1.8 % (0.0-4.0); Hematocrit 28.8 % (35.0-46.0); Hemoglobin 9.5 gm/dL (11.6-15.3); Lymph # (Auto) 2.5 th/mm3 (1.0-4.8); Lymph % (Auto) 24.3 % (9.0-44.0); Mean Corpuscular Hemoglobin 28.3 pg (27.0-34.0); Mean Corpuscular Volume 85.8 fL (80.0-100.0); Mean Platelet Volume 7.6 fL (7.0-11.0); Mono # (Auto) 0.9 th/mm3 (0.0-0.9); Mono % (Auto) 8.9 % (0.0-8.0); Neut # (Auto) 6.6 th/mm3 (1.8-7.7); Neut % (Auto) 64.7 % (16.0-70.0); Platelet Count 238 th/mm3 (150-450); Red Blood Count 3.36 mil/mm3 (4.00-5.30); White Blood Count 10.2 th/mm3 (4.0-11.0)
[2018-03-17 06:20] LABS: Alanine Aminotransferase 19 U/L (10-53); Albumin 2.2 g/dL (3.4-5.0); Anion Gap 8 meq/L (5-15); Aspartate Aminotransferase 25 U/L (15-37); Blood Urea Nitrogen 5 mg/dL (7-18); Calcium 7.7 mg/dL (8.5-10.1); Carbon Dioxide 24.1 meq/L (21.0-32.0); Chloride 109 meq/L (98-107); Glomerular Filtration Rate Greater Than 89 mL/min (>89); Glucose,Random 79 mg/dL (74-106); Potassium 3.7 meq/L (3.5-5.1); Sodium 141 meq/L (136-145)
[2018-03-17 06:23] LABS: Alkaline Phosphatase 164 U/L (45-117); Total Protein 5.9 g/dL (6.4-8.2)
--- NOTE | 2018-03-17 09:23 | P.PNOB ---
Subjective Post op day: 2 Interval history: She , delivered by repeat at 37 weeks 5 days for category 2 tracing at term. Patient is eating and drinking without difficulty. Ambulating voiding without difficulty. Pain well controlled on current medications. Denies any chest pain /shortness of breath/dizziness. She would like to stay 1 more day because she wants to make sure she can ambulate okay on her own and she has no one to help her at home. Patient has not passed gas or had BM yet. Objective Vital Signs/I&O: Vital Signs 03/16/18 09:24 03/16/18 11:10 03/16/18 16:12 Temperature 98.1 F Pulse Rate 80 92 H 90 Respiratory Rate 20 20 Blood Pressure 143/91 H 144/89 H 148/91 H Pulse Oximetry 03/16/18 16:13 03/16/18 20:00 03/17/18 02:07 Temperature 98.1 F 98.0 F Pulse Rate 90 Respiratory Rate 18 20 Blood Pressure 133/81 Pulse Oximetry 100 03/17/18 08:00 Temperature 98.2 F Pulse Rate 80 Respiratory Rate 18 Blood Pressure 128/70 Pulse Oximetry Result Diagrams: 03/17/18 05:09 03/17/18 05:09 Objective Remarks: GENERAL: Well-nourished, well-developed patient. CARDIOVASCULAR: Regular rate and rhythm without murmurs, gallops, or rubs. RESPIRATORY: Breath sounds equal bilaterally. No accessory muscle use. ABDOMEN/GI: Abdomen soft, non-tender, bowel sounds present. Incision: Clean, dry and intact. Dressing in place. Fundus: Firm, non-tender at umbilicus. GENITOURINARY: Light to moderate bleeding. EXTREMITIES: No cyanosis or edema, non-tender, without signs of DVT. Medications and IVs: Active Medications Citric Acid/Sodium Citrate (Sodium Citrate/Citric Acid Liq) 30 ml PO [employer] Stop: 03/19/18 15:29 Last Admin: 03/15/18 16:52 Dose: 30 ml Diphenhydramine HCl (Benadryl) 50 mg PO Q6H PRN PRN Reason: PAIN 1-10 AND/OR FEVER >101F Last Admin: 03/16/18 21:55 Dose: 50 mg Lactated Ringer's (Lr 1000 Ml Inj) 1,000 mls @ 500 mls/hr IV.CONT .Q2H [facility] Last Admin: 03/17/18 05:10 Dose: Not Given Lactated Ringer's (Lr 1000 Ml Inj) 1,000 mls @ 150 mls/hr IV.CONT .Q6H40M [facility] Last Admin: 03/17/18 01:20 Dose: Not Given Oxytocin (Pitocin 30 Units/Ns 500 Ml Premix) 30 units in 500 mls @ 100 mls/hr IV.SIG UNSCH PRN PRN Reason: Heavy bleeding Ibuprofen (Motrin) 800 mg PO Q8H PRN PRN Reason: cramping Last Admin: 03/17/18 01:19 Dose: 800 mg Ketorolac Tromethamine (Toradol Inj) 30 mg IM Q6H PRN PRN Reason: SEE LABEL COMMENTS Stop: 03/20/18 18:15 Naloxone HCl (Narcan Inj) 0.4 mg IV.PUSH PRN PRN PRN Reason: Resp rate < 10 Oxycodone/Acetaminophen (Percocet 5/325 Mg) 1 tab PO Q4H PRN PRN Reason: PAIN SCALE 3 TO 5 Last Admin: 03/17/18 05:09 Dose: 1 tab Oxycodone/Acetaminophen (Percocet 5/325 Mg) 2 tab PO Q4H PRN PRN Reason: PAIN SCALE 6 TO 10 Last Admin: 03/17/18 01:18 Dose: 2 tab Sodium Chloride (Ns Flush) 2 ml IV.FLUSH BID [facility] Last Admin: 03/16/18 21:56 Dose: Not Given Sodium Chloride (Ns Flush) 2 ml IV.FLUSH PRN PRN PRN Reason: FLUSH AFTER USING IV ACCESS Assessment and Plan - Diagnosis (1) Drug abuse during Code(s): O99.320 - Drug use complicating , unspecified trimester; F19.10 - Other psychoactive substance abuse, uncomplicated Status: Acute Plan: Cocaine abuse during , UDS positive for cocaine Child given up for adoption, adopted parents in room (2) delivery delivered Code(s): O82 - Encounter for delivery without indication Status: Acute Plan: Patient is a 33-year-old delivered at 37 weeks and 4 days. Patient is day 1 after repeat C/S. Patient was counseled to do 6 weeks of pelvic rest. Patient was counseled to follow up in 6 weeks. --BP well controlled overnight with blood pressures in the 130s over 80s without medications. Mildly elevated BPs with diastolics in the 90s yesterday. Monitor patient's blood pressure. If >160/105 will add PRN medications. CBC and CMP reveals no abnormalities; platelets normal, LFTs normal --Regular diet --AF VSS --Continue routine care --Motrin and Percocet when necessary for pain --Encourage OOB --Pelvic rest for 6 weeks will need follow-up appointment at that time. --Anticipate discharge tomorrow -- Bowel regimen ordered
[2018-03-17] MEDS ORDERED: Bisacodyl 10 MG Supp RECTAL ONE (09:30)
[2018-03-17] MEDS: Docusate Sodium 100 MG Capsule PO SCH ×2 (11:11→21:53)
[2018-03-18] MEDS ORDERED: medroxyPROGESTERone Acetate Inj 150 MG/ML Syringe IM ONE (07:24)
--- NOTE | 2018-03-18 08:05 | P.PNOB ---
Subjective Post op day: 3 Interval history: Patient is a , delivered by repeat at 37 weeks 5 days for category 2 tracing at term. Patient is eating and drinking without difficulty. Ambulating and voiding without difficulty. Patient reports itchiness when taking percocet so she was switched to norco for pain management. Denies any chest pain/shortness of breath/dizziness. She is passing gas but has not had a BM yet. She is interested in depo today for control. Objective Vital Signs/I&O: Vital Signs 03/17/18 20:00 Temperature 98.1 F Pulse Rate 95 H Respiratory Rate 8 L Blood Pressure 140/81 Result Diagrams: 03/17/18 05:09 03/17/18 05:09 Objective Remarks: GENERAL: Well-nourished, well-developed patient. CARDIOVASCULAR: Regular rate and rhythm without murmurs, gallops, or rubs. RESPIRATORY: Breath sounds equal bilaterally. No accessory muscle use. ABDOMEN/GI: Abdomen soft, non-tender, bowel sounds present. Incision: Clean, dry and intact. Fundus: Firm, non-tender at umbilicus. GENITOURINARY: Light to moderate bleeding. EXTREMITIES: No cyanosis or edema, non-tender, without signs of DVT. Medications and IVs: Active Medications Hydrocodone Bitart/Acetaminophen ([place] 5/325) 1 tab PO Q4H PRN PRN Reason: PAIN SCALE 5-10 Last Admin: 03/18/18 06:02 Dose: 1 tab Al Hydroxide/Mg Hydroxide (Milk Of Magnesia Liq) 30 ml PO DAILY [facility] Last Admin: 03/17/18 11:19 Dose: Not Given Citric Acid/Sodium Citrate (Sodium Citrate/Citric Acid Liq) 30 ml PO [employer] [facility] Stop: 03/19/18 15:29 Last Admin: 03/15/18 16:52 Dose: 30 ml Diphenhydramine HCl (Benadryl) 50 mg PO Q6H PRN PRN Reason: PAIN 1-10 AND/OR FEVER >101F Last Admin: 03/18/18 01:44 Dose: 50 mg Docusate Sodium (Colace) 100 mg PO BID [facility] Last Admin: 03/17/18 21:53 Dose: 100 mg Lactated Ringer's (Lr 1000 Ml Inj) 1,000 mls @ 500 mls/hr IV.CONT .Q2H [facility] Last Admin: 03/17/18 05:10 Dose: Not Given Lactated Ringer's (Lr 1000 Ml Inj) 1,000 mls @ 150 mls/hr IV.CONT .Q6H40M [facility] Last Admin: 03/17/18 01:20 Dose: Not Given Oxytocin (Pitocin 30 Units/Ns 500 Ml Premix) 30 units in 500 mls @ 100 mls/hr IV.SIG UNSCH PRN PRN Reason: Heavy bleeding Ibuprofen (Motrin) 800 mg PO Q8H PRN PRN Reason: cramping Last Admin: 03/18/18 01:44 Dose: 800 mg Ketorolac Tromethamine (Toradol Inj) 30 mg IM Q6H PRN PRN Reason: SEE LABEL COMMENTS Stop: 03/20/18 18:15 Naloxone HCl (Narcan Inj) 0.4 mg IV.PUSH PRN PRN PRN Reason: Resp rate < 10 Sodium Chloride (Ns Flush) 2 ml IV.FLUSH BID [facility] Last Admin: 03/17/18 11:20 Dose: Not Given Sodium Chloride (Ns Flush) 2 ml IV.FLUSH PRN PRN PRN Reason: FLUSH AFTER USING IV ACCESS Assessment and Plan - Diagnosis (1) Drug abuse during Code(s): O99.320 - Drug use complicating , unspecified trimester; F19.10 - Other psychoactive substance abuse, uncomplicated Status: Acute Plan: Cocaine abuse during , UDS positive for cocaine Child given up for adoption, adopted parents in room (2) delivery delivered Code(s): O82 - Encounter for delivery without indication Status: Acute Plan: Patient is a 33-year-old delivered at 37 weeks and 4 days. Patient is day 3 after repeat C/S. Patient was counseled to do 6 weeks of pelvic rest. Patient was counseled to follow up in 6 weeks. --BP well controlled overnight with blood pressures in the 130s over 80s without medications. Mildly elevated BPs with diastolics in the 90s on 03/16. CBC and CMP reveals no abnormalities; platelets normal, LFTs normal --Regular diet --AF VSS --Continue routine care --Motrin and [place] when necessary for pain --Encourage OOB --Pelvic rest for 6 weeks will need follow-up appointment at that time. --Bowel regimen ordered --Depo provera administered prior to discharge --Anticipate discharge today --Patient will follow up in the [facility] - Plan Patient is a 33-year-old delivered at 37 weeks and 4 days. Patient is day 1 after repeat C/S. Patient was counseled to do 6 weeks of pelvic rest. Patient was counseled to follow up in 6 weeks. --BP well controlled overnight with blood pressures in the 130s over 80s without medications. Mildly elevated BPs with diastolics in the 90s yesterday. Monitor patient's blood pressure. If >160/105 will add PRN medications. CBC and CMP reveals no abnormalities; platelets normal, LFTs normal --Regular diet --AF VSS --Continue routine care --Motrin and Percocet when necessary for pain --Encourage OOB --Pelvic rest for 6 weeks will need follow-up appointment at that time. --Anticipate discharge tomorrow
[2018-03-18] MEDS: Docusate Sodium 100 MG Capsule PO SCH (09:00)
[2018-03-18 11:04] VITALS: BP 143/89; PULSE 91; RESP 18; TEMP 98.9
== END 2018-03-18 12:50 | disposition home or self-care (01) ==
LOC: HOBED 10:45 → H2E 15:16 → H1EA 03-16 00:21
PROVIDERS: ADMIT Obstetrics & Gynecology; ATTEND Obstetrics & Gynecology